=== PATIENT | male | born 1960 | race Caucasian/White ===

== ENCOUNTER 2024-02-08 16:29 | Emergency (ER) | payer OTHER ==
[~2024-02-08] VITALS: Ht 175.3 cm; Wt 80.0 kg
[2024-02-08 16:30] VITALS: O2SAT 97
[2024-02-08 19:34] LABS: BASOPHILS % 0.7 % (0.0-2.0); EOSINOPHILS % 1.2 % (0.0-5.0); HEMATOCRIT. 34.3 % (42.0-52.0); HEMOGLOBIN. 10.9 g/dL (14.0-18.0); LYMPHOCYTES % 9.5 % (20.0-50.0); MEAN CORPUSCULAR HEMOGLOBIN 23.9 pg (28.0-32.0); MEAN CORPUSCULAR HGB CONC 31.7 g/dL (31.0-37.0); MEAN CORPUSCULAR VOLUME 75.2 fL (80.0-94.0); MEAN PLATELET VOLUME 7.5 fl (7.4-10.4); MONOCYTES % 6.5 % (2.0-8.0); NEUTROPHILS % 82.1 % (40.0-76.0); PLATELET 474 x1000/uL (130-400); RED BLOOD CELL COUNT 4.56 mill/uL (4.7-6.1)
[2024-02-08 19:37] LABS: ADD RBC MORPHOLOGY YES; DIFFERENTIAL COMMENT 1
[2024-02-08 19:43] LABS: CHLORIDE 104 mEq/L (98-107); INR 0.9; POTASSIUM 4.6 mEq/L (3.5-5.1); PROTHROMBIN TIME 10.6 sec (9.6-11.0); SODIUM 137 mEq/L (136-145)
[2024-02-08 19:45] LABS: CARBON DIOXIDE 23 mEq/L (21-32)
[2024-02-08 19:46] LABS: CALCIUM 9.8 mg/dL (8.7-10.4)
[2024-02-08 19:50] LABS: CREATININE 1.1 mg/dL (0.6-1.3)
[2024-02-08 19:51] LABS: GLUCOSE 186 mg/dL (70-105); UREA NITROGEN BLOOD 21 mg/dL (9-23)
[2024-02-08 19:52] LABS: ALANINE AMINOTRANSFERASE < 7 IU/L (10-49); ALBUMIN 4.5 g/dL (3.2-4.8)
[2024-02-08 19:53] LABS: ASPARTATE AMINOTRANSFERASE 9 IU/L (<34); BILIRUBIN DIRECT < 0.1 mg/dL (<=3.0); BILIRUBIN TOTAL 0.2 mg/dL (0.1-1.0); PROTEIN TOTAL 8.1 g/dL (6.0-8.3)
[2024-02-08 20:25] LABS: HYPOCHROMASIA 1+; MICROCYTOSIS 1+; PLATELET ESTIMATE INCREASED
[2024-02-08 20:26] LABS: ANISOCYTOSIS 2+; OVALOCYTES 1+
[2024-02-08 21:16] LABS: CLARITY URINE CLEAR (CLEAR); COLOR URINE YELLOW (YELLOW); GLUCOSE URINE 3+ (NEGATIVE); KETONES URINE NEGATIVE (NEGATIVE); LEUKOCYTE ESTERASE URINE NEGATIVE (NEGATIVE); NITRITE URINE NEGATIVE (NEGATIVE); OCCULT BLOOD URINE NEGATIVE (NEGATIVE); PROTEIN URINE NEGATIVE (NEGATIVE); SPECIFIC GRAVITY URINE 1.032 (1.005-1.030); UROBILINOGEN URINE 0.2 E.U./dL (0.2-1.0)
[2024-02-08 21:42] LABS: BACTERIA URINE NONE SEEN; RBC URINE NONE SEEN /hpf (0-2); SQUAMOUS EPITHELIAL CELL URINE NONE SEEN /lpf (RARE/1+); WBC URINE NONE SEEN /hpf (0-2)
[2024-02-08] MEDS ORDERED: PIPERACILLIN/TAZO 3.375G/100ML 100 ML IV STA (21:53)
[2024-02-08] MEDS: PIPERACILLIN/TAZO 3.375G/50ML 50 ML IV NR (22:44)
[2024-02-08] MEDS: VANCOMYCIN 1G PREMIX 200 ML IV SCH (23:56)
[2024-02-09] MEDS: IOHEXOL-300 100 ML BOTTLE ONE (00:57)
[2024-02-09 01:55] VITALS: TEMP 37.05852
[2024-02-09 02:23] VITALS: BP 135/71; PULSE 72; RESP 20; O2SAT 99
== END 2024-02-09 02:25 | disposition short-term general hospital (02) ==
LOC: ER 16:29
DX: L03.311 Cellulitis of abdominal wall (principal); E11.9 Type 2 diabetes mellitus without complications; I10 Essential (primary) hypertension; I25.10 Atherosclerotic heart disease of native coronary artery without angina pectoris; Z93.3 Colostomy status
CPT/HCPCS: 80076; 80048; 81003; 83605; 83690; 85025; 85610; 87040; 36415; 74177; 96367; 96365; 99285; Q9967; J2543; J3370; Z7610 ×2